=== PATIENT | female | born 1990 | race American Indian/Alaskan Native ===

== ENCOUNTER 2016-09-30 04:57 | Emergency (ER) | payer OTHER ==
[2016-09-30 05:51] LABS: Basophils % (Auto) 0.4 % (0.0-1.8); Eosinophils % (Auto) 0.4 % (0.0-4.3); Hematocrit 31.8 % (30.3-42.9); Hemoglobin 10.8 gm/dl (10.1-14.3); Mean Corpuscular HGB Conc 34 % (30-34); Mean Corpuscular Hemoglobin 29 pg (28-32); Mean Corpuscular Volume 86 fl (79-97); Platelet Count 308 K/mm3 (140-440); Red Blood Count 3.68 M/mm3 (3.65-5.03); Red Cell Distribution Width 14.7 % (13.2-15.2); White Blood Count 9.5 K/mm3 (4.5-11.0)
[2016-09-30 06:15] LABS: Alanine Aminotransferase 8 units/L (7-56); Albumin 3.6 g/dL (3.9-5); Albumin/Globulin Ratio 0.9 %; Alkaline Phosphatase 67 units/L (35-129); Anion Gap 17 mmol/L; BUN/Creatinine Ratio 18.33; Blood Urea Nitrogen 11 mg/dL (7-17); Calcium 8.7 mg/dL (8.4-10.2); Carbon Dioxide 23 mmol/L (22-30); Glucose 123 mg/dL (65-100); Potassium 4.1 mmol/L (3.6-5.0); Sodium 137 mmol/L (137-145); Total Protein 7.7 g/dL (6.3-8.2)
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
[2016-09-30] MEDS ORDERED: TYLENOL PO ONE (07:35)
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
--- NOTE | 2016-09-30 09:04 | XRay Report ---
Right humerus 2 views: History: Right arm pain. Findings: No fracture, periosteal reaction or lytic lesion. Impression: Essentially negative right forearm.
[2016-09-30 09:47] VITALS: BP 131/86
== END 2016-09-30 09:47 | disposition home or self-care (01) ==
LOC: ED 04:57
DX: O26.891 Other specified pregnancy related conditions, first trimester (principal); M54.2 Cervicalgia; M25.572 Pain in left ankle and joints of left foot; Z3A.01 Less than 8 weeks gestation of pregnancy; R10.9 Unspecified abdominal pain; R51 Headache; M79.602 Pain in left arm; V43.53XA Car driver injured in collision with pick-up truck in traffic accident, initial encounter; Y93.89 Activity, other specified; Y99.8 Other external cause status; Y92.89 Other specified places as the place of occurrence of the external cause
CPT/HCPCS: 36415; 70450; 72125; 76801; 80053; 84703; 85025